=== PATIENT | female | born 1995 ===

== ENCOUNTER 2017-09-17 18:57 | Emergency (ER) | payer OTHER ==
[2017-09-17 19:36] VITALS: BMI 24.2
[2017-09-17 20:31] LABS: SQUAMOUS EPITHIAL 5 /hpf (0-5); URINE AMORPHOUS SEDIMENT RARE /ul (<OCC); URINE BACTERIA RARE (<OCC); URINE BILIRUBIN NEGATIVE (NEGATIVE); URINE BLOOD NEGATIVE (NEGATIVE); URINE CLARITY CLOUDY (Clear); URINE COLOR YELLOW (YELLOW); URINE GLUCOSE (UA) NEG (Normal); URINE LEUKOCYTE ESTERASE NEG Leu/uL (Negative); URINE PROTEIN NEGATIVE (NEGATIVE); URINE UROBILINOGEN 0.2-1.0 mg/dL (0.2-1.0)
--- NOTE | 2017-09-17 21:43 | OBHP ---
Datetime: 09/17/2017 19:30 IP Adm Impression: , intrauterine ; No Active Labor IP Admit Plan: Observation/Evaluation Admit Comment, IP Provider: 22 yo F with MULU of 12/11/2017 based on pt stated first trimester U S, presents with suprapubic pelvic pain and 1 episode of bleed with wiping after urinary movement. Localized suprapubic pain has progressively worsened, and intermittently thoughout the day. Pain q uality is pressure like and rated 7-8/10. Exacerbated with arising from seated/laying position and wi th walking. Alleviated with rest. She denies recent trauma, including falls or sexual activity. This morning, she reported one episode of noticing streaked blood with wiping after urination. Res olved since. Denies dysuria or history of STI. Reports: FM; Denies: CTX, LOF. Last sexual acitivy: at ROS: Denies current, dizziness, blurred vision, CP/SOB/N/V LMP: 02/28/2018 care: initiated in [place] with one dating US; she denies any reported abnormalities. 4 w eeks ago, she moved to [place] and then to [place]. She was able to seek care at [facility] in [place] via Annabelle Pacheco NP where a doppler and accucheck were performed. [facility] be [facility] in our clinic. Pmhx: none Famhx: none Soc: Denies: smoking, alcohol, illicit drug use, or history of STI Surg: none NKDA Meds: Vitamins 22 yo IUP 27.6 wks based on reported MULU via first trimester US (28.5 weeks based on LMP) -Observe -UA: r/o UTI -Future ER precautions reviewed with patient. Case d/w Dr. Jamir Jaramillo MD PGY1 Addendum by Dr. Bowie: I have evaluated the patient independently and I agree with the above Pelvic Type - PN: Not Done Extremities - PN: Normal Abdomen - PN: Normal Back - PN: Not Done Breast - PN: Not Done Lungs - PN: Normal Heart - PN: Normal Thyroid - PN: Not Done Neurologic - PN: Normal HEENT - PN: Normal General - PN: Normal FHR - Baseline A Provider: 150 EGA AdmitDate IP: 27.6 Vital Signs Provider: Reviewed; Within Normal Limits IP Chief Complaint: Other NICHD Variability Prov Fetus A: Moderate 6-25bpm NICHD Accel Fetus A IP Provider: [id number] FHR Category Provider Fetus A: Category I NICHD Decel Fetus A IP Provider: None Genitourinary Exam: Normal DTRs - PN: Not Done
--- NOTE | 2017-09-17 21:46 | OBDCSUM ---
Datetime: 09/17/2017 21:11 Discharged to, Provider: Home Follow up at, Provider: Pt needs to find care Disch Instr Activity: Normal activity Disch Instr Diet: Regular Discharge Time: 09/17/2017 21:15 Follow up in weeks, Provider: Patient given info about [facility] clinic, pt to call _ schedule appt Disch Referrals: None Discharge Diagnosis Prov Other: abdominal pain
[2017-09-18 02:07] VITALS: BP 110/61; PULSE 95
== END 2017-09-17 21:15 | disposition home or self-care (01) ==
LOC: H.EROB2 18:57
DX: O26.852 Spotting complicating pregnancy, second trimester (principal); O26.92 Pregnancy related conditions, unspecified, second trimester; R10.2 Pelvic and perineal pain; Z3A.27 27 weeks gestation of pregnancy